=== PATIENT | female | born 1975 | race Caucasian/White ===

== ENCOUNTER 2020-05-28 04:13 | Day surgery (SDC) | payer OTHER ==
[2020-05-27 12:34] VITALS: BMI 27.3
--- OUTSIDE RECORDS SUMMARY | 2020-05-28 04:15 | XMS ---
:1975 Author Organization [facility] Care Team Providers Name Role Phone Otis Melgar Unavailable Apuzzo, Pacheco Unavailable Apuzzo, Pacheco Unavailable Apuzzo, Pacheco Unavailable Apuzzo, Pacheco Unavailable Apuzzo, Pacheco Unavailable Apuzzo, Pacheco Unavailable Apuzzo, Pacheco Unavailable Apuzzo, Pacheco Unavailable Apuzzo, Pacheco Unavailable Re-disclosure Warning The records that you are about to access may contain information from federally- assisted alcohol or drug abuse programs. If such information is present, then the following federally mandated warning applies: This information has been disclosed to you from records protected by federal confidentiality rules (42 CFR part 2). The federal rules prohibit you from making any further disclosure of this information unless further disclosure is expressly permitted by the written consent of the person to whom it pertains or as otherwise permitted by 42 CFR part 2. A general authorization for the release of medical or other information is NOT sufficient for this purpose. The Federal rules restrict any use of the information to criminally investigate or prosecute any alcohol or drug abuse patient.The records that you are about to access may contain highly sensitive health information, the redisclosure of which is protected by Article 27-F of the [facility] Public Health law. If you continue you may haveaccess to information: Regarding HIV / AIDS; Provided by facilities licensed or operated by the [facility] Office of Mental Health; or Provided by the [facility] Office for People With Developmental Disabilities. If such information is present, then the following [facility] mandated warning applies: This information has been disclosed to you from confidential records which are protected by state law. State law prohibits you from making any further disclosure of this information without the specific written consent of the person to whom it pertains, or as otherwise permitted by law. Any unauthorized further disclosure in violation of state law may result in a fine or longterm sentence or both. A general authorization for the release of medical or other information is NOT sufficient authorization for further disclosure. Allergies, Adverse Reactions, Alerts Type Substance Status Reaction Procedure Medication Description Data Intervention Intervention Source (s) Code Code Drug LISINOPRIL Active LISINOPRIL [facility] ([facility] [place], ) Medications Description Medication Start Status Indications Patient Fill Procedure Reaction Data Date Instructions Instructions Intervention Source(s) Code QSYMIA 24 HR 05/27/ complet [facility] (S t Phentermine 2019 ed [facility] 11.25 MG / 12:00: Medica l, topiramate 00 AM PC) 69 MG EST Extended Release Oral Capsule [Qsymia] PHENTERMINE Phentermine 04/22/ complet [facility] (St Hydrochlori 2019 ed [facility]key' s de 37.5 MG 12:00: Medica l, Oral Tablet 00 AM PC) EST QSYMIA 24 HR 12/09/ complet [facility] (S t Phentermine 2020 ed [facility] 11.25 MG / 12:00: Medica l, topiramate 00 AM PC) 69 MG EDT Extended Release Oral Capsule [Qsymia] SUMATRIPTAN Sumatriptan 10/09/ complet [facility] (St 100 MG Oral 2020 ed [facility] Tablet 12:00: Medical, 00 AM PC) EDT SUMATRIPTAN Sumatriptan 10/09/ complet [facility] (St 100 MG Oral 2020 ed [facility] Tablet 12:00: Medical, 00 AM PC) EDT Problems Concern Problem Problem Problem Problem Effective Problem Health Data Status Code Name Description Type Dates Status Status Sour ce(s) Description Description complete A64 Unspecif Diagnosi 05/27/2020 [facility] ([facility] d ied s 12:00:00 [facility] sexually AM EST Medical , transmit PC) rohit disease complete J32.9 Chronic Diagnosi 05/27/2020 MED [facility] (St d sinusiti s 12:00:00 [facility] s, AM EST Medical, unspecif PC) ied complete R63.5 Abnormal Diagnosi 05/27/2020 [facility] (St d weight s 12:00:00 [facility] gain AM EST Medical, PC) complete Z00.00 Encounte Diagnosi 05/27/2020 [facility] (St d r for s 12:00:00 [facility] general AM EST Medical, adult PC) medical examinat ion without abnormal findings active R63.5 Abnormal ABNORMAL Problem 05/27/2020 MED GEN (St weight WEIGHT GAIN 12:00:00 Cyrus n's gain AM EST Medical, PC) active A64 Unspecif UNSPECIFIED Problem 05/27/2020 [facility] (St ied SEXUALLY 12:00:00 [facility] sexually TRANSMITTED AM EST Med ical, transmit DISEASE PC) rohit disease active J32.9 Chronic CHRONIC Problem 05/27/2020 MEDGE N (St sinusiti SINUSITIS, 12:00:00 Cyrus n's s, UNSPECIFIED AM EST Medi cat, unspecif PC) ied active Z00.00 Encounte ENCOUNTER Problem 05/27/2020 [facility] (St r for FOR GENERAL 12:00:00 [facility] n[facility] general ADULT AM EST Medical, adult MEDICAL PC) medical EXAMINATION examinat WITHOUT ion ABNORMAL without FINDINGS abnormal findings active N94.6 Dysmenor DYSMENORRHEA Problem 01/04/2020 [facility] ([facility], , 12:00:00 [facility] unspecif UNSPECIFIED AM EDT Med ical, ied PC) active E66.01 Morbid MORBID Problem 01/04/2020 MED[facility] N (St (severe) (SEVERE) 12:00:00 [facility] obesity OBESITY DUE AM EDT Medi cat, due to TO EXCESS PC) excess CALORIES calories complete N94.6 Dysmenor Diagnosi 01/04/2020 [facility] ([facility] d [facility], s 12:00:00 [facility] unspecif AM EDT Medical , ied PC) complete E66.01 Morbid Diagnosi 01/04/2020 [facility] (St d (severe) s 12:00:00 [facility] obesity AM EDT Medical, due to PC) excess calories active N94.6 Dysmenor DYSMENORRHEA Problem 01/04/2020 [facility] ([facility], , 12:00:00 [facility] unspecif UNSPECIFIED AM EDT Med ical, ied PC) active E66.01 Morbid MORBID Problem 01/04/2020 [facility] N (St (severe) (SEVERE) 12:00:00 [facility] obesity OBESITY DUE AM EDT Medi cat, due to TO EXCESS PC) excess CALORIES calories Procedures Procedure Procedure Procedure Medication Medication Medication Medicatio n Indications Patient Fill Description Data Date Instructions Description Start Date Status Instruc tions Instructions Source(s) Documentat 05/27/2020 [facility] ([facility] ion of 12:00:00 [facility] current AM EST Medic al, medication PC) s (procedure ) COLLECTION 05/27/2020 [facility] (St VENOUS 12:00:00 [facility] BLOOD AM EST Medical , VENIPUNCTU PC) RE Documentat 01/04/2020 [facility] (St ion of 12:00:00 [facility] current AM EDT Medic al, medication PC) s (procedure ) Documentat 01/04/2020 [facility] (St ion of 12:00:00 [facility] current AM EDT Medic al, medication PC) s (procedure ) Documentat 01/04/2020 [facility] (St ion of 12:00:00 [facility] current AM EDT Medic al, medication PC) s (procedure ) Documentat 01/04/2020 [facility] (St ion of 12:00:00 [facility] current AM EDT Medic al, medication PC) s (procedure ) Documentat 01/04/2020 [facility] (St ion of 12:00:00 [facility] current AM EDT Medic al, medication PC) s (procedure ) OFFICE 01/04/2020 [facility] (St OUTPATIENT 12:00:00 [facility] VISIT 15 AM EDT Medi cat, MINUTES PC) Documentat 01/04/2020 [facility] (St ion of 12:00:00 [facility] current AM EDT Medic al, medication PC) s (procedure ) OFFICE 01/04/2020 [facility] (St OUTPATIENT 12:00:00 [facility] VISIT 15 AM EDT Medi cat, MINUTES PC) Results ID Date Data Source [id number] 05/24/2020 10:46:00 AM EST [facility] Name Value Range Interpretation Description Data Sup porting Code Source(s) Document(s ) SARS [facility] coronavirus 2 RNA This lab was ordered by [facility] and reported by [facility]. ID Date Data Source [id number] 04/21/2020 09:53:00 PM EST [facility] Name Value Range Interpretation Description Data Sup porting Code Source(s) Document(s ) SARS [facility] coronavirus 2 RNA This lab was ordered by [facility] and reported by [facility]. ID Date Data Source [id number] 10/12/2019 06:15:00 PM EDT [facility] Name Value Range Interpretation Code Description Data Ciarra rce(s) Supporting Document(s ) COV2 [facility] This lab was ordered by [facility] maldonado nd reported by [facility]. Encounters Encounter Providers Location Date Problem Problem Problem Effective [facility] Data Code Name Description Dates Status Status Source (s) Description Description Attender: 05/27 A64 Unspecif 05/27/2020 [facility] ( ied 12:00:00 [facility] 12:00 sexually AM EST Medical, :00 transmit PC) AM rohit EST disease Office Attender: 05/27/2020 J32.9 Chronic 05/27/2020 [facility] (St Otis Apuzzo 12:00:00 AM sinusitis, 12:00:00 AM [facility] EST unspecified EST Medical, PC) Office Attender: 05/27/2020 R63.5 Abnormal 05/27/2020 [facility] (St Otis Apuzzo 12:00:00 AM EST weight gain 12:00:00 AM EST [facility], PC) Office Attender: 05/27/2020 Z00.00 Encounter for 05/27/2020 [facility] (St Otis Apu[facility] 12:00:00 AM general adult 12:00:00 A M [facility] EST medical EST Medical, PC) examination without abnormal findings Office Attender: 01/04/2020 N94.6 Dysmenorrhea, 01/04/2020 [facility] (St Otis [facility]uzzo 12:00:00 AM unspecified 12:00:00 AM [facility] EDT EDT Medical, PC) Office Attender: 01/04/2020 E66.01 Morbid 01/04/2020 [facility] (St Otis Apuzzo 12:00:00 AM EDT (severe) 12:00:00 AM [facility] obesity due EDT Medical, PC) to excess calories Office Insurance Providers Payer name Policy type Policy ID Covered Covered libertarian's Policy P alem / Coverage libertarian ID relationship to [employer] Inf ormation type gleason [place] [id number] HEALTHCARE Social History Social History Description Effective Dates Description Data Sourc e(s) Type Smoking (-) smoke Occ 05/27/2020 (-) smoke Occ [facility] (St ETOH. (-) coffee 12:00:00 AM EST ETOH. 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 Mostly card co. Mostly remotely now remotely now SINGLE-LIVES ALONE SINGLE-LIVES ALONE NO EXERCISE NO EXERCISE Smoking Status Unknown if ever 05/27/2020 Unknown if ever [facility] (St Observation smoked 12:00:00 AM EST smoked [facility], PC) Smoking (-) smoke Occ 01/04/2020 (-) smoke Occ [facility] (St ETOH. (-) coffee 12:00:00 AM EDT ETOH. 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 Mostly card co. Mostly remotely now remotely now Smoking Status Unknown if ever 01/04/2020 Unknown if ever [facility] (St Observation smoked 12:00:00 AM EDT smoked [facility], PC) Vital Signs ID Date Data Source UNK [facility] ([facility] Name Value Range Interpretation Code Description Data Source(s) Respiratory rate 14 /min [facility] ( [facility]) ID Date Data Source UNK [facility] ([facility] Name Value Range Interpretation Code Description Data Source(s) Body mass index 28.1 kg/m2 [facility] (S t [facility] (BMI) [Ratio] Medical, PC ) ID Date Data Source UNK [facility] ([facility] Name Value Range Interpretation Code Description Data Source(s) Diastolic blood 84 mm[Hg] [facility] (S t [facility] pressure Medical, PC) ID Date Data Source [facility] ([facility], ) Name Value Range Interpretation Code Description Data Source(s) Systolic blood 118 mm[Hg] [facility] ([facility] [place], ) ID Date Data Source [facility] ([facility], ) Name Value Range Interpretation Code Description Data Source(s) Body weight 185 lb [facility] ([facility] [place], ) ID Date Data Source [facility] ([facility], ) Name Value Range Interpretation Code Description Data Source(s) Body height 68 in [facility] ([facility] [place], )
[2020-05-28] MEDS ORDERED: PROPOFOL 20 ML ONE ×2 (11:58)
[2020-05-28] MEDS ORDERED: oxyCODONE HCL 5 MG TABLET PO PRN ×2 (12:21→12:51)
[2020-05-28] MEDS ORDERED: IBUPROFEN 400 MG TABLET (FP) PO PRN (12:21)
[2020-05-28] MEDS ORDERED: ACETAMINOPHEN 325 MG TABLET (FP) PO PRN (12:21)
[2020-05-28] MEDS ORDERED: ONDANSETRON 4 MG/2 ML VIAL IVPUSH PRN ×2 (12:21→12:51)
[2020-05-28] MEDS ORDERED: MIDAZOLAM HCL 2 MG/2 ML SINGLE DOSE VIAL ONE ×2 (12:23)
[2020-05-28] MEDS ORDERED: PROMETHAZINE HCL 25 MG/1 ML VIAL IVPUSH PRN (12:51)
--- NOTE | 2020-05-28 14:00 | OP ---
Operative Note - Note: Operative Date: 05/28/20 Pre-Operative Diagnosis: menometorrhagia Operation: hysteroscopy, dilation and curettage Post-Operative Diagnosis: Same as Pre-op Surgeon: Lory Alfaro Anesthesiologist/WET END OPERATOR: Micha Dukes Anesthesia: MAC Specimens Removed: endometrial curetting Estimated Blood Loss (mls): 5 Fluid Volume Replaced (mls): 300 Operative Report Dictated: Yes
[2020-05-28 14:20] VITALS: TEMP 97
[2020-05-28 15:18] VITALS: BP 110/70; PULSE 60
--- NOTE | 2020-05-29 12:51 | OP ---
DATE OF OPERATION: 05/28/2020 PREOPERATIVE DIAGNOSIS: Menometrorrhagia. POSTOPERATIVE DIAGNOSIS: Menometrorrhagia. SURGERY: Hysteroscopy, dilation and curettage. FINDINGS: Normal-appearing endometrium, bilateral ostia visualized. SURGEON: Terri Alfaro MD ANESTHESIA: Micha Dukes MD SPECIMENS REMOVED: Endometrial curettings. INDICATION: Patient is a 45-year-old with a history of menometrorrhagia, failed conservative management and medical therapy. She was counseled regarding medical/surgical intervention, desires for surgical intervention. Risks, benefits, alternatives and complications of the procedure were discussed including infection, bleeding, uterine perforation, damage to surrounding organs. She expressed understanding, is brought to the operating room. OPERATIVE PROCEDURE: When anesthesia was found to be adequate, patient was prepped and draped in the normal sterile fashion, placed in the dorsal lithotomy position using Sami stirrups. A weighted speculum was placed in the posterior vagina. Anterior vagina was retracted using a Del Toro retractor. Cervix was grasped using an Allis clamp. Cervix was gently dilated to accommodate a size 3 hysteroscope. Hysteroscopy was performed, revealed the above findings. Gentle sharp curetting was performed. All instruments were removed from the patient's vagina. Patient was awoken from anesthesia and brought to recovery room in stable condition. TERRI ALFARO M.D. [id number]
--- NOTE | 2020-05-29 16:42 | PATH ---
Surgical Pathology Report Patient Name: JERALD WEINER [facility]. Rec. #: [id number] /Age/Gender: 1975 (Age: 45) / F Account: [id number] Location: [facility] SURGICAL Taken: 05/28/2020 Received: 05/28/2020 Reported: 05/29/2020 Physicians: Lory Alfaro Specimen(s) Received ENDOMETRIAL CURETTINGS Clinical History Menorrhagia Final Diagnosis ENDOMETRIAL CURETTINGS, DILATION AND CURETTAGE: FRAGMENTS OF SECRETORY ENDOMETRIUM AND BENIGN CERVICAL TISSUE. Electronically Signed Bethany Villagomez M.D. Gross Description Received in formalin labeled "endometrial curettings" are multiple irregular fragments of pink-gutierrez and hemorrhagic soft tissue measuring 2 x 2 x 0.5 cm in aggregate. Entire specimen is submitted in one cassette. MLSZ/05/28/2020 sanml/05/28/2020
== END 2020-05-28 15:05 | disposition home or self-care (01) ==
LOC: JASU-SURG 04:13
PROVIDERS: ATTEND Obstetrics & Gynecology
PROC: 0UDB7ZX Extraction of Endometrium, Via Natural or Artificial Opening, Diagnostic (ICD-10-PCS; principal; 2020-05-28 12:00)
PROC: 0UJD8ZZ Inspection of Uterus and Cervix, Via Natural or Artificial Opening Endoscopic (ICD-10-PCS; 2020-05-28 12:00)
DX: N92.1 Excessive and frequent menstruation with irregular cycle (principal)
CPT/HCPCS: 36415; 84703; 86850; 86900; 86901

== ENCOUNTER 2023-02-08 16:20 | Emergency (ER) | payer OTHER ==
[2023-02-08 16:35] VITALS: BP 128/66; PULSE 88; RESP 18; TEMP 97.8; BMI 29.1
[2023-02-08] MEDS ORDERED: SODIUM CHLORIDE 1,000 ML IV STA (17:03)
== END 2023-02-08 18:26 | disposition home or self-care (01) ==
LOC: FER 16:20
DX: R10.84 Generalized abdominal pain (principal); K52.9 Noninfective gastroenteritis and colitis, unspecified
CPT/HCPCS: 99283-25